=== PATIENT | female | born 1940 | race American Indian/Alaskan Native ===

== ENCOUNTER 2016-10-14 11:31 | Day surgery (SDC) | payer MEDICARE ==
[~2016-10-14 11:31] MED LIST: IOPIDINE OD ONE; MYDRIACYL OD ONE; NEOFRIN OD ONE
[2016-10-14] MEDS ORDERED: NEOFRIN ONE (11:59)
[2016-10-14] MEDS ORDERED: IOPIDINE ONE (12:00)
[2016-10-14] MEDS ORDERED: IOPIDINE OD ONE (12:29)
[2016-10-14] MEDS ORDERED: MYDRIACYL OD ONE (12:29)
[2016-10-14] MEDS ORDERED: NEOFRIN OD ONE (12:29)
[2016-10-14 13:46] VITALS: BP 140/80
== END 2016-10-14 11:32 | disposition home or self-care (01) ==
LOC: OR 11:31
PROVIDERS: ATTEND Specialist
DX: H26.491 Other secondary cataract, right eye (principal)

== ENCOUNTER 2017-09-22 11:30 | Day surgery (SDC) | payer MEDICARE ==
[~2017-09-22 11:30] MED LIST changes: -IOPIDINE OD ONE; +IOPIDINE ONE; -MYDRIACYL OD ONE; +MYDRIACYL ONE; -NEOFRIN OD ONE; +NEOFRIN ONE
[2017-09-22] MEDS ORDERED: NEOFRIN OS ONE (11:58)
[2017-09-22] MEDS ORDERED: MYDRIACYL OS ONE (11:58)
[2017-09-22] MEDS ORDERED: IOPIDINE OS ONE (11:58)
[2017-09-22 15:01] VITALS: BP 148/86
== END 2017-09-22 13:02 | disposition home or self-care (01) ==
LOC: OR 11:30
PROVIDERS: ATTEND Specialist
DX: H26.492 Other secondary cataract, left eye (principal); E78.00 Pure hypercholesterolemia, unspecified; E89.0 Postprocedural hypothyroidism; I10 Essential (primary) hypertension; J44.9 Chronic obstructive pulmonary disease, unspecified; K21.9 Gastro-esophageal reflux disease without esophagitis; M19.90 Unspecified osteoarthritis, unspecified site; Z91.040 Latex allergy status; Z87.891 Personal history of nicotine dependence; Z85.43 Personal history of malignant neoplasm of ovary; Z92.3 Personal history of irradiation